=== PATIENT | female | born 1985 | race Caucasian/White ===

== ENCOUNTER → 2025-04-22 12:20 | Outpatient (REF) | payer BC, SELFPAY | LOC: RAD 12:20 | PROVIDERS: ATTENDING PHYSICIAN Surgery; FAMILY PHYSICIAN Family Medicine | DX: K80.20 Calculus of gallbladder without cholecystitis without obstruction (principal) | CPT/HCPCS: 74177; Q9967 ==

== ENCOUNTER 2025-05-24 06:04 | Day surgery (SDC) | payer BC, SELFPAY ==
[2025-05-24] VITALS (10 sets, daily range): BP systolic 103–111; BP diastolic 58–73; BMI 25.4
--- NOTE | 2025-05-24 06:44 | HP.FOC2 ---
Focused History & Physical
Chief Complaint
HPI:
Chief Complaint: Symptomatic cholelithiasis, chronic calculus cholecystitis
HPI / Indication for Planned Procedure: 39-year-old female recently seen in outpatient surgical evaluation secondary to symptomatic cholelithiasis. She has had a few recent episodes of postprandial abdominal pain similar to her previous biliary
colic prompting surgical referral. After discussions regarding treatment options patient wished to proceed with cholecystectomy and presents today for scheduled surgery.
Relevant Past Medical History: Other (GERD, seasonal allergies)
Relevant Social History: Negative
Relevant Family History: Negative
Relevant Past Surgical History: Positive for ( x 2, wisdom teeth)
Review of Systems
Review of Pertinent Systems: All Systems Negative
Medication
See Medication form for detailed medications: Yes
Medication List (including Herbals & OTC):
cetirizine 10 mg tablet (Zyrtec) 10 mg PO DAILY 05/21/25
multivitamin 1 tab PO DAILY 05/21/25
Medications Reviewed: Yes
Allergies and Reactions
Patient has Allergies: No
Noted Allergies and Reactions:
Allergy/AdvReac Type Severity Reaction Status Date / Time
No Known Allergies Allergy Unverified 05/21/25 12:03
Pertinent Physical Exam
All Other Systems: Negative
Head/Neck: Normal
Lungs: Normal
Heart: Normal
Abdomen: Normal
Extremities: Normal
Neurological: Normal
Diagnosis / Assessment
39-year-old female with symptomatic cholelithiasis/chronic calculus cholecystitis presenting today for cholecystectomy
Plan / Procedure
Laparoscopic cholecystectomy with cholangiogram
Anesthesia/Sedation to be done by Anesthesia Provider: Yes
--- NOTE | 2025-05-24 06:51 | W.SUR.PREOP ---
Pre-Operative Surgical Note
-
I have examined this patient prior to the performance of the scheduled procedure.
The patient's condition is unchanged from the time of the current History and
Physical and the patient is able to undergo the scheduled procedure.
[2025-05-24 09:19] LABS: HCG, Urine Qualitative Screen Negative
[2025-05-24] MEDS: TYLENOL 1000 MG PO (09:30)
[2025-05-24] MEDS: NORMOSOL-R/PLASMALYTE-A 1000 IV (09:30)
--- NOTE | 2025-05-24 12:24 | W.IMMPOSTOP ---
Addendum entered and electronically signed by Tello Tapia MD 05/24/25 15:10:
#[id number]
Original Note:
Surgical Immed Post Op Note
-
Primary Surgeon: Tello Tapia MD
Assisting Surgeon: None
Pre-op Diagnosis: Symptomatic cholelithiasis
Post-op Diagnosis: Symptomatic cholelithiasis
Procedure Performed: Laparoscopic cholecystectomy with cholangiogram
Anesthesia Type: GETA +0.25% Marcaine with epi
Specimen / Cultures: Gallbladder
Estimated Blood Loss: 6 mL
Complications: None immediate
Operative Findings: Gallbladder filled with stones. Normal cholangiogram. Gallbladder extracted at epigastric port site which had to be slightly enlarged to accommodate the numerous gallstones within gallbladder.
[2025-05-24] MEDS: DILAUDID 0.5 MG IV (12:54)
[2025-05-24] MEDS: DILAUDID 0.25 MG IV (13:28)
== END 2025-05-24 15:00 | disposition home or self-care (01) ==
LOC: SDS 06:04
PROVIDERS: ATTENDING PHYSICIAN Surgery
DX: K80.20 Calculus of gallbladder without cholecystitis without obstruction (principal); R59.0 Localized enlarged lymph nodes
CPT/HCPCS: 47563; 74300; 76000; 81025; 88304; A4300